=== PATIENT | female | born 1930 ===

== ENCOUNTER 2019-01-22 11:48 | Inpatient (IN) | payer OTHER ==
[~2019-01-22] VITALS: Ht 154.9 cm; Wt 65.3 kg
[2019-02-04] MEDS ORDERED: SYNTHROID75 MCG PO (12:11)
[2019-02-04] MEDS ORDERED: FLUOXETINE PO (12:12)
[2019-02-04] MEDS ORDERED: PRAVACOL PO (12:13)
[2019-02-06] MEDS ORDERED: FLUOXETINE HCL20 MG (08:11)
[2019-02-06] MEDS ORDERED: PRAVASTATIN SOD40 MG PO (08:11)
== END 2019-02-07 12:59 | disposition home or self-care (01) | DRG 741 ==
LOC: SURG 02-04 10:30 → O/R 02-04 10:30 → OB/GYN 02-06 06:00 → SURG 02-06 10:30 → OB/GYN 02-06 11:53 → SURG 02-06 15:15 → OB/GYN 02-07 12:59
PROVIDERS: ADMIT Obstetrics & Gynecology Gynecologic Oncology
PROC: 0UT74ZZ Resection of Bilateral Fallopian Tubes, Percutaneous Endoscopic Approach (ICD-10-PCS; 2019-02-06)
PROC: 0UT24ZZ Resection of Bilateral Ovaries, Percutaneous Endoscopic Approach (ICD-10-PCS; 2019-02-06)
PROC: 0UT94ZZ Resection of Uterus, Percutaneous Endoscopic Approach (ICD-10-PCS; principal; 2019-02-06 15:15)
DX: C54.1 Malignant neoplasm of endometrium (principal); N84.0 Polyp of corpus uteri